=== PATIENT | female | born 1995 | race Caucasian/White ===

== ENCOUNTER 2021-01-01 10:06 | Day surgery (SDC) | payer OTHER, SELFPAY ==
[2021-01-01] VITALS (7 sets, daily range): BP systolic 105–111; BP diastolic 66–69; PULSE 70–98; RESP 16–18; TEMP 36.2–36.8; O2SAT 99–100; BMI 28.8
--- NOTE | 2021-01-01 | POC_PTH ---
PATIENT: LANA MARTIN LOC: [facility] [place] U#:[id number] AGE/SX: 25/F ROOM: RE01/01/[address]: Dr. Gillian Beltran MD : 1995 BED: DIS: 01/01/2021 SPEC #: [id number] RECD: 01/01/21 13:29 STATUS: ARTURO REQ #: [id number] EVA: 01/01/21 00:[address]: Tamera Michel DEPT: SURGICAL PATHOLOGY RECD BY: Joseph Whiteside ENTERED: 01/01/21 13:30 SP TYPE: PROD CONC OTHR DR: MD Dr. Becca Yanez MD Tissues: Product of conception, NOS Procedures: Surgery Specimen Level IV Comments: @ Ordering doctor for SUIV edited from to @ by RGOOD at 01/01/21 1604 @ Submitting doctor edited from to @ by RGOOD at 01/01/21 1604 HEADER OPERATION: Suction D & C PRE-OP DIAGNOSIS: Missed TISSUE SUBMITTED: Products of conception sent fresh (Anora) MICROSCOPIC DIAGNOSIS Endometrium, curettage: Chorionic villi, decidualized stroma and trophoblastic cells consistent with products of conception. AM:meenakshi 01/04/2021 MICROSCOPIC DESCRIPTION Slides are reviewed. GROSS DESCRIPTION Received in fixative is one container labeled with the patient's name and designated products of conception. The specimen consists of multiple irregular fragments of red-gilliam soft tissue that in aggregate measure 10 x 10 x 1 cm. parts are not grossly recognized. Human Resources District Manager portions are submitted for Anora. Human Resources District Manager portions are submitted in one cassette. / AM:meenakshi 01/01/21 TC:5 CPT: 94919
[2021-01-01] MEDS: Doxycycline 100 MG CAPSULE 200 MG PO (11:05)
[2021-01-01] MEDS: Lactated Ringers 1,000 ML 100 ML IV (11:14)
[2021-01-01 11:17] LABS: Hematocrit 38.7 % (37-47); Hemoglobin 13.1 g/dL (12.0-15.0); Mean Corp Hgb Conc 33.9 g/dL (32-36); Mean Corpuscular Hgb 29.8 pg (27.0-32.0); Platelet Count 289 K/mm3 (150-450); RBC Distribution Width CV 12.7 % (11.6-14.6); RBC Distribution Width SD 40.5 fl (35.1-43.9); White Blood Count 8.8 K/mm3 (4.4-11.0)
[2021-01-01 11:35] LABS: Hemoglobin A1c 5.1 % (3.8-5.6)
[2021-01-01 11:41] LABS: Thyroid Stim Hormone (TSH) 1.35 uIU/mL (0.358-3.74)
[2021-01-01] MEDS: Lidocaine 1% (20 ml mdv) 20 ML Vial (12:25)
[2021-01-01 12:56] LABS: Pathology Specimen OB SEE PATHOLOGY REPORT
--- NOTE | 2021-01-01 13:01 | HP.PCM_ITS ---
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 Date Name GA/Weeks Outcome Route Bth Weight Gen Labor Lgth Anesthesia Del Locatn Provider FOB 02/05/18 HANY 39 live - full term 9lbs 13oz Male 0 spinal CC [facility] Dr. Delmer LEACH 06/17/19 Rochelle 39 live - full term 8lbs 3oz Female 0 spinal CC [facility] Dr.Orafu LEACH Delivery Date: 02/05/18 scheduled c/s d/t macrosomia Radha Ambriz Delivery Date: 06/17/19 schedule c/s Radha Ambriz HPI NOB LMP 10/27/20 Details: LANA MARTIN is a 25 year old who presents for New OB visit. she denies any bleeding or cramping, having extra nausea, didn't have any with previous pregnancies. previous msicarriage was 6 weeks no d and c or medication needed. US today shows 8w2d no FHT no color flow seen. confirmed miscarriage, enlarged yolk sac. OB Visit KONSTANTIN Calculator Estimated Delivery Date Method Current WG Current Estimate 08/03/21 LMP (Certain) 9w 2d Estimated Due Date: 08/03/21 Expected Delivery Route/Plan TOLAC patient counseled regarding risks/benefits of trial of labor versus repeat . ACOG/uptodate education given to patient. % likelihood of success per calculator TOLAC consent form signed: [] Specific Issue/Plans Covid status: [] Flu vaccine: [] Tdap vaccine: [] Rhogam: [] LARC form signed: [] Problem list reviewed and updated with the most current plan of care details and appropriate orders placed. Relevant counseling for the gestational age provided. Continue routine care and follow up unless otherwise noted in visit notes/problem list details Initial Weight: 168 lb Date EGA Weight BP Urine Prot Glucose FHR FuHt Pres Dilation Effaced St Visit Note 12/31/20 9w 2d 168 lb (+0 oz) 112/68 Menstrual History Last Menstral Period: 10/27/20 Reported LMP: definite Normal amount/duration: Yes On hormonal BC at conception: No Antepartum Record Genetic Screening: Congenital Heart Defect: Other, Neural Tube Defect: Other, Hemoglobinopathy Or Carrier: Other, Cystic Fibrosis: Other, Chromosome Abnormality: Other, Gonzalez-Sachs: Other, Hemophilia: Other, Intellectual Disabil ity/Autism: Other, Recurrent Loss/Stillbirth: Other, Other Structural Defect: Other, Other Genetic Disease: Other and Maternal Metabolic Disorder: Other Infection History: Live with someone with TB or Exposed to TB: No, Patient or Partner has history of Genital Herpes: No, Rash or Viral illness since last mentrual period: No, Prior GBS-Infected child: No, History of STD: No, HIV In fection: No, History of Hepatitis: No, Recent travel outside of [place]: No, Concern for hepatitis exposure: No and Varicella immune: Yes Medical History Medical History: Negative: Diabetes, Hypertension, Heart disease, Auto-immune disorder, Kidney disease/UTI, Neurologic/epilepsy, Psychiatric, Depression/ depression, Hepatitis/liver disease, Varicosities/phlebitis, Thyroid dysfunction, Trauma/domestic violence, History of blood transfusions, D (Rh) Sensitized, Pulmonary (e.g.,TB,Asthma), Seasonal allergies, Drug/latex allergies/reactions, Breast, Finance Vice President surgery, Operations/hospitalizations, Anesthetic complications, History of abnormal pap, Uterine anomaly/kaitlin, Infertility, Anti-retroviral treatment, Relevant family history and Other ACOG First Trimester First Trimester: Desire for , Alcohol, Tobacco Cessation, Illicit/Recreational Drug/Substance Use, Intimate Partner Violence, Barriers to care, Unstable Housing, Communication Barriers, Environmental/Work Hazards, Anticipated Course of Care, Nurtrition and weight gain, Toxoplasmosis Precations, Use of Any medications, Sexual activity, Exercise, Dental Care, Sauna/Hot tub use, Seat Belt use, Childbirth classes/Hospital facilities, , Travel, Indications for Ultrasound and Screening for Aneuploidy ROS Const Reports system reviewed and no additional complaints, except as documented, Reports fatigue and Denies fever(s) Eyes Reports system reviewed and no additional complaints, except as documented ENT Reports system reviewed and no additional complaints, except as documented Card Denies chest pain and Denies dyspnea Resp Reports system reviewed and no additional complaints, except as documented, Denies cough and Denies dyspnea GI Denies abdominal pain and Reports nausea Reports system reviewed and no additional complaints, except as documented Musc Reports system reviewed and no additional complaints, except as documented Skin/Breast Reports system reviewed and no additional complaints, except as documented Neuro Yes system reviewed and no additional complaints, except as documented Psych Reports system reviewed and no additional complaints, except as documented Endo Reports system reviewed and no additional complaints, except as documented and Reports fatigue Exam Const General: healthy appearing, comfortable and no acute distress Orientation: alert [facility] Head: normal to inspection, normocephalic and atraumatic Ears: hearing grossly normal bilaterally and external ears normal Nose: external nose normal and nares normal Mouth: oral mucosae normal Teeth and gingiva: dentition normal Eyes General: appearance normal, both eyes and all related structures Neck Neck: normal visual inspection, no lymphadenopathy and supple Thyroid: thyroid normal Chest Chest palpation & inspection: normal inspection of the chest Breast inspection: normal inspection of the breasts and normal inspection of the axillae Breast palpation: normal palpation of the breasts and normal palpation of the axillae Resp Effort & Inspection: normal respiratory effort GI Inspection: normal to inspection Palpation: soft and no hepatosplenomegaly General: bladder normal to palpation External Female Exam: normal external appearance and normal appearance of the urethra Urethra: normal appearance of the urethra Speculum Exam - Vagina: normal appearance of the vagina and normal vaginal discharge Speculum Exam - Cervix: normal appearance of the cervix Bimanual Exam- Vagina & Uterus: normal bimanual exam, bladder normal to palpation, non-tender and other Bimanual Exam- Adnexa, other: non-tender Skin General: no rashes or lesions noted Neuro Motor: muscle tone normal throughout and no movement abnormalities noted Extrem General: normal to inspection and full ROM Supplemental Info ACOG book given and patient encouraged to read about nutrition, exercise, weight gain, and food avoidance in . Coding Level of Care Code Off vis,new,level 4 Diagnoses Missed O02.1 Assessment and Plan Assessment and Plan (1) Missed : Status: Acute Comment: discussed options medical vs exp vs surgical management, patient to decide. Plan - Dr. Tamera Michel MD: Problem list updated and treatment plans were reviewed with the patient and relevant educational handouts given. See problem list details for specific plan information. 12/31/20 5602 UPDATE- I have seen the patient and performed any clinically relevant updates to the history and physical exam. Tamera Michel MD
--- NOTE | 2021-01-01 13:02 | PCM.OPRPT ---
Problems Associated Problem List Diagnoses (1) Missed : Report of Operation Date of Procedure: 01/01/21 Pre-Operative Diagnosis: see PL Post-Operative Diagnosis: same Surgery/Procedure Performed:: Suction dilation and curettage Description of Surgical Findings:: no FHT present, Nonviable 9 weeks specialty food products supervisor: None Type of Anesthesia: Local MAC Special Medications: none Specimen's removed: POC Drains: none Estimated Blood Loss (mL): 50 Fluids Replaced: crystalloid Description of Procedure: us done and no fht seen. Patient was taken to the operating room and placed under MAC local anesthesia. She was prepped and draped in the normal sterile fashion the dorsal lithotomy position. Bladder was drained of clear urine and anterior lip of the cervix was grasped and the uterus sounded to 10. Cervix was progressively dilated to allow passage of a 10mm suction curette. Progressive passes were made removing the retained products of conception without complication. Sharp curettage confirmed complete removal of the retained products. All instruments were removed from the vagina and excellent hemostasis was noted and the patient was taken to recovery in stable condition. Grafts/Implants Used: none Complications none Admit VTE Documentation VTE Present on Admission: No VTE Mechan Device Prophylaxis: SCD's Procedures Urinary/Genital 52xxx-59xxx: [id number] Trmt of incomplete Ab, any TM
--- NOTE | 2021-01-01 13:16 | EX.PCM.DISCH ---
Discharge Instructions Procedure D&C Diet Discharge Diet: No restrictions Activity Discharge Activity: Return to Normal Activity, May Shower and May Take a Tub Bath (after 1 week) May resume sexual activity in: 1-2 weeks Weight Bearing Status: Weight bearing as tolerated Lifting Restrictions: none Dressing / Incision Call your doctor if you observe: Fever of 101 or Higher, Using more than 1 pad per hour, Shortness of breath and Uncontrolled pain Follow Up Care Please Follow Up With: Tamera Michel MD When: Call [phone] to schedule appointment. Test Results: Test results from this visit will be discussed in further detail at your follow-up appointment, if applicable. Discharge Plan Admission Attending Provider: Gillian Beltran Primary Care Provider: Becca Agrawal Discharge Orders/Prescriptions Prescriptions: No Action PNV-DHA 27 mg iron-1 mg -300 mg capsule PO RF: 0 Disposition Discharge Orders: Discharge Patient (Routine); Ordered 01/01/21 Ordered By: Dr. Tamera Michel
== END 2021-01-01 14:17 | disposition home or self-care (01) ==
LOC: SDC 10:09 → AC 10:11
PROVIDERS: Obstetrics & Gynecology; PCP Family Medicine; Referring Provider Obstetrics & Gynecology; Visit Provider Obstetrics & Gynecology
PROC: (CPT 59820; principal; 2021-01-01 11:45)
DX: O02.1 Missed abortion (principal); Z3A.09 9 weeks gestation of pregnancy; Z20.822 Contact with and (suspected) exposure to COVID-19
CPT/HCPCS: 01965; 59820; 83036; 84443; 85027; 86850; 86900; 86901; 87426; 88305; J7120; J2405

== ENCOUNTER 2021-06-09 10:41 | Outpatient (CLI) | payer OTHER, SELFPAY ==
[2021-06-09 11:35] LABS: Amphetamine Urine VISTA NEGATIVE (<1000 ng/mL); Barbiturate Urine VISTA NEGATIVE (< 200 ng/mL); Benzodiazepine Urine VISTA NEGATIVE (< 200 ng/mL); Cocaine Urine VISTA NEGATIVE (< 300 ng/mL); Ecstacy Urine VISTA NEGATIVE (< 500 ng/mL); Methadone Urine VISTA NEGATIVE (< 300 ng/mL); PCP Urine VISTA NEGATIVE (< 25 ng/mL); THC Urine VISTA NEGATIVE (< 50 ng/mL); Vista UDS pH Range 7
[2021-06-10 22:07] LABS: Chlamydia By Nucleic Acid AMP Negative (Negative)
[2021-06-11 11:00] LABS: Gonococcus By Nucleic Acid AMP Negative (Negative)
[2021-06-16 14:26] LABS: HPV Reflexed? NOT INDICATED
== END 2021-06-09 23:59 | disposition home or self-care (01) ==
LOC: LABSPEC 10:42
PROVIDERS: PCP Family Medicine; Referring Provider Obstetrics & Gynecology; Visit Provider Obstetrics & Gynecology
DX: Z12.4 Encounter for screening for malignant neoplasm of cervix (principal); O09.90 Supervision of high risk pregnancy, unspecified, unspecified trimester
CPT/HCPCS: 80307; 87086; 87088; 87491; 87591; 88175; G0145

== ENCOUNTER 2021-06-25 12:43 | Outpatient (CLI) | payer OTHER, SELFPAY ==
[2021-06-25 13:08] LABS: Absolute Lymphocyte Count 2.05 X10^3/uL (0.83-4.51); Absolute Neutrophil Count 6.3 X10^3/uL (2.0-7.7); Basophil# 0.02 X10^3/uL; Basophil% 0.2 % (0-1); Eosinophil# 0.17 X10^3/uL; Eosinophils% 1.9 % (0-5); Hematocrit 36.6 % (37-47); Hemoglobin 12.7 g/dL (12.0-15.0); Lymphocyte # 2.05 X10^3/ul (0.83-4.51); Lymphocyte % 22.9 % (19-41); Mean Corp Hgb Conc 34.7 g/dL (32-36); Mean Corpuscular Hgb 31.1 pg (27.0-32.0); Mean Corpuscular Volume 89.5 fL (81-99); Monocyte# 0.43 X10^3/uL; Monocyte% 4.8 % (0-10); NRBC Flagged by Analyzer 0 % (0-5); Neutrophil # 6.28 X10^3/uL (2.7-7.7); Platelet Count 271 K/mm3 (150-450); RBC Distribution Width CV 12.6 % (11.6-14.6); RBC Distribution Width SD 41.1 fl (35.1-43.9); Red Blood Count 4.09 M/mm3 (4.2-5.4)
[2021-06-25 13:27] LABS: Glucose Challenge Gest 1H 50g 128 mg/dL (70-140)
[2021-06-25 14:09] LABS: HIV - WCH Non-Reactive (Nonreactive); Hepatitis B Surface Antigen Non-Reactive (Nonreactive); Hepatitis C Antibody Non-Reactive (Nonreactive); Rubella IgG Reactive (Nonreactive); Syphilis Antibodies Non-reactive
== END 2021-06-25 23:59 | disposition home or self-care (01) ==
LOC: PAVLAB 12:44
PROVIDERS: PCP Family Medicine; Referring Provider Obstetrics & Gynecology; Visit Provider Obstetrics & Gynecology
DX: O99.210 Obesity complicating pregnancy, unspecified trimester (principal)
CPT/HCPCS: 36415; 82950; 85025; 86703; 86762; 86780; 86803; 86850; 86900; 86901; 87340

== ENCOUNTER → 2021-10-25 | Outpatient (CLI) | payer OTHER, SELFPAY ==
[2021-10-25 13:01] LABS: Absolute Lymphocyte Count 1.28 X10^3/uL (0.83-4.51); Absolute Neutrophil Count 2.8 X10^3/uL (2.0-7.7); Basophil# 0.01 X10^3/uL; Basophil% 0.2 % (0-1); Eosinophil# 0.08 X10^3/uL; Eosinophils% 1.8 % (0-5); Hematocrit 34.3 % (37-47); Hemoglobin 11.3 g/dL (12.0-15.0); Lymphocyte # 1.28 X10^3/ul (0.83-4.51); Lymphocyte % 28.6 % (19-41); Mean Corp Hgb Conc 32.9 g/dL (32-36); Mean Corpuscular Hgb 31.2 pg (27.0-32.0); Mean Corpuscular Volume 94.8 fL (81-99); Mean Platelet Vol. 10.7 fl (6.2-12.0); Monocyte# 0.29 X10^3/uL; Monocyte% 6.5 % (0-10); NRBC Flagged by Analyzer 0 % (0-5); Neutrophil # 2.77 X10^3/uL (2.7-7.7); Platelet Count 208 K/mm3 (150-450); RBC Distribution Width CV 13.6 % (11.6-14.6); RBC Distribution Width SD 47.3 fl (35.1-43.9); Red Blood Count 3.62 M/mm3 (4.2-5.4); White Blood Count 4.5 K/mm3 (4.4-11.0)
[2021-10-25 13:24] LABS: Glucose Challenge Gest 1H 50g 143 mg/dL (70-140)
== END | disposition home or self-care (01) ==
LOC: LAB 11:32
PROVIDERS: PCP Family Medicine; Visit Provider Nurse Practitioner Women's Health
DX: Z34.90 Encounter for supervision of normal pregnancy, unspecified, unspecified trimester (principal)
CPT/HCPCS: 36415; 82950; 85025

== ENCOUNTER → 2021-11-09 | Outpatient (CLI) | payer OTHER, SELFPAY ==
[2021-11-09 07:50] LABS: Glucose GTT-Gestation. Fasting 89 mg/dL (<105)
[2021-11-09 08:36] LABS: Glucose GTT-Gestational 1 Hr 135 mg/dL (<190)
[2021-11-09 09:49] LABS: Glucose GTT-Gestational 2 Hr 158 mg/dL (<165)
[2021-11-09 11:23] LABS: Glucose GTT-Gestational 3 Hr 106 L (<145)
== END | disposition home or self-care (01) ==
LOC: LAB 06:54
PROVIDERS: PCP Family Medicine; Referring Provider Nurse Practitioner Women's Health; Visit Provider Nurse Practitioner Women's Health
DX: Z13.1 Encounter for screening for diabetes mellitus (principal)
CPT/HCPCS: 36415; 82951; 82952

== ENCOUNTER → 2021-12-24 | Outpatient (CLI) | payer OTHER, SELFPAY | END | disposition home or self-care (01) | LOC: LABSPEC 13:39 | PROVIDERS: PCP Family Medicine; Visit Provider Obstetrics & Gynecology | DX: O09.90 Supervision of high risk pregnancy, unspecified, unspecified trimester (principal); Z3A.00 Weeks of gestation of pregnancy not specified | CPT/HCPCS: 87081 ==

== ENCOUNTER 2022-01-06 23:30 | Inpatient (IN) | payer OTHER, SELFPAY ==
[2022-01-06 22:57] VITALS: BMI 29.2
[2022-01-06 23:03] VITALS: BP 118/77; PULSE 67; TEMP 36.3; O2SAT 97
[2022-01-06 23:27] LABS: ROM Internal Control Test YES-OK TO RESULT pt. (Internal QC); ROM Patient Test POSITIVE (Negative)
[2022-01-07] VITALS (66 sets, daily range): BP systolic 80–162; BP diastolic 45–81; PULSE 64–117; TEMP 35.9–37.4; O2SAT 96–99
[2022-01-07 00:48] LABS: Absolute Lymphocyte Count 2.25 X10^3/uL (0.83-4.51); Absolute Neutrophil Count 7.8 X10^3/uL (2.0-7.7); Basophil# 0.03 X10^3/uL; Basophil% 0.3 % (0-1); Eosinophil# 0.14 X10^3/uL; Eosinophils% 1.3 % (0-5); Hematocrit 38.2 % (37-47); Hemoglobin 13.2 g/dL (12.0-15.0); Lymphocyte # 2.25 X10^3/ul (0.83-4.51); Lymphocyte % 20.7 % (19-41); Mean Corp Hgb Conc 34.6 g/dL (32-36); Mean Corpuscular Hgb 31.5 pg (27.0-32.0); Mean Corpuscular Volume 91.2 fL (81-99); Mean Platelet Vol. 11.4 fl (6.2-12.0); Monocyte# 0.64 X10^3/uL; Monocyte% 5.9 % (0-10); NRBC Flagged by Analyzer 0 % (0-5); Neutrophil # 7.77 X10^3/uL (2.7-7.7); Neutrophil % 71.4 % (47-70); Platelet Count 246 K/mm3 (150-450); RBC Distribution Width SD 43.3 fl (35.1-43.9); Red Blood Count 4.19 M/mm3 (4.2-5.4); White Blood Count 10.9 K/mm3 (4.4-11.0)
[2022-01-07] MEDS: Lactated Ringers 1,000 ML 200 ML IV ×3 (03:40→16:21)
[2022-01-07] MEDS: LACTATED RINGERS 500 ML 999 ML IV ×2 (03:40→04:45)
[2022-01-07] MEDS: fentaNYL-bupivacaine (epidural) 100 ML BAG EPIDURAL ×3 (04:14→14:37)
--- NOTE | 2022-01-07 05:03 | HP.PCM.OB_ITS ---
HPI - General General Date of Admission: 01/06/22 HPI Narrative LANA MARTIN, is a 26 F who presents IAL with SROM clear fluid desires TOLAC. Maternal Data Information KONSTANTIN Calculator Estimated Delivery Date Method Current WG Current Estimate 01/18/22 Ultrasound #1 38w 3d Other Estimates 01/12/22 LMP (Uncertain) 39w 2d PFSH PFSH Medical History (Updated 01/07/22 @ 05:[address] Tamera Michel MD) macrosomia Home Medications multivitamin no.47-iron fum 27 mg-folate no.1 1 mg-dha 300 mg capsule (PNV-DHA) 1 cap PO DAILY 12/15/20 [History Last Taken 01/05/22 08:00] Allergy/AdvReac Type Severity Reaction Status Date / Time chlorhexidine AdvReac Severe Rash Verified 01/06/22 22:58 Surgical History (Updated 12/29/21 @ 10:[address] 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 Date Name GA/Weeks Outcome Route Bth Weight Gen Labor Lgth Anesthesia Del Locatn Provider FOB 02/05/18 HANY 39 live - full term 9lbs 13oz Male 0 spinal CC [facility] Dr. Delmer LEACH 06/17/19 Rochelle 39 live - full term 8lbs 3oz Female 0 spinal CC [facility] Dr.Orafu LEACH 07/16/20 6 spontaneous 01/01/21 9 spontaneous Delivery Date: 02/05/18 Last Updated by: Radha Ambriz scheduled c/s d/t macrosomia Delivery Date: 06/17/19 Last Updated by: Radha Ambriz schedule c/s Delivery Date: 01/01/21 Last Updated by: Alisia Santiago EMERGENCY ROOM SPECIALIST, EMERGENCY ROOM SPECIALIST-C D&C per Visit Details Expected Delivery Route/Plan TOLAC patient counseled regarding risks/benefits of trial of labor versus repeat . ACOG/uptodate education given to patient. 51 % likelihood of success per calculator TOLAC consent form signed: 12/29/2021 riana planned- Mitul Sanchez, friend. Labor Preferences- CB/BF classes: mitul sanchez labor support person: rn internship Mitul, HANY labor intervention preferences: prefers minimal intervention. pain management options preferred: natural cut cord/dad catch: yes : yes PP control planned: NFP discussed possible routes of delivery and associated risks:yes special requests: will decline erythromycin ointment, vitamin K, hep B vaccine. does not want pitocin for second stage unless increased vaginal bleeding Plans Covid status: discussed Flu vaccine: discussed Tdap vaccine: declines Rhogam: NA LARC form signed: yes Problem list reviewed and updated with the most current plan of care details and appropriate orders placed. Relevant counseling for the gestational age provided. Continue routine care and follow up unless otherwise noted in visit notes/problem list details OB Flowsheet Initial Weight: Not Recorded Date -?-?-?-?-?-?-?-?-?-?-?-?- EGA Weight BP Urine Prot -?-?-?-?-?-?-?-?-?-?-?-?- Glucose FHR FuHt Pres Dilation -?-?-?-?-?-?-?-?-?-?-?-?- Effaced St Visit Note 06/09/21 -?-?-?-?-?-?-?-?-?-?-?-?- 8w 1d 173 lb 130/82 -?-?-?-?-?-?-?-?-?-?-?-?- 155 -?-?-?-?-?-?-?-?-?-?-?-?- JV- CRL off by o ne week new KONSTANTIN is 01/18/2021 JV- CRL off by one week new KONSTANTIN is 01/18/2022. plan for rpt section 06/25/21 -?-?-?-?-?-?-?-?-?-?-?-?- 10w 3d 175 lb 120/80 Negative -?-?-?-?-?-?-?-?-?-?-?-?- Negative 171 -?-?-?-?-?-?-?-?-?-?-?-?- JV- CRL measures 10w5d, FHT obtained. pt reassured. RTO in 4 weeks. 07/29/21 -?-?-?-?-?-?-?-?-?-?-?-?- 15w 2d 166 lb 8 oz 116/60 Nega tive -?-?-?-?-?-?-?-?-?-?-?-?- Negative 160 -?-?-?-?-?-?-?-?-?-?-?-?- No VB, LOF. Elle f to confirm FHT. Anatomy US MFM ordered. 09/27/21 -?-?-?-?-?-?-?-?-?-?-?-?- 23w 6d 170 lb 120/60 Negative -?-?-?-?-?-?-?-?-?-?-?-?- Negative 160 -?-?-?-?-?-?-?-?-?-?-?-?- SM- no vb lof go od fm no regular ctx. 10/25/21 -?-?-?-?-?-?-?-?-?-?-?-?- 27w 6d 171 lb 8 oz 106/60 Nega tive -?-?-?-?-?-?-?-?-?-?-?-?- Negative 141 -?-?-?-?-?-?-?-?-?-?-?-?- MH-No VB, LOF. G ood FM. 28 wk labs, larc. Declines tdap 11/09/21 -?-?-?-?-?-?-?-?-?-?-?-?- 30w 0d 172 lb 114/80 Negative -?-?-?-?-?-?-?-?-?-?-?-?- Negative 140 30 -?-?-?-?-?-?-?-?-?-?-?-?- SM- no vb lof go od fm no regular ctx 12/08/21 -?-?-?-?-?-?-?-?-?-?-?-?- 34w 1d 172 lb 8 oz 114/78 Nega tive -?-?-?-?-?-?-?-?-?-?-?-?- Negative 145 35 -?-?-?-?-?-?-?-?-?-?-?-?- JV- no lof ,vagi nal bleeding, or dec fm. still planning tolac. 12/24/21 -?-?-?-?-?-?-?-?-?-?-?-?- 36w 3d 173 lb 6 oz 116/75 Nega tive -?-?-?-?-?-?-?-?-?-?-?-?- Negative 143 36 -?-?-?-?-?-?-?-?-?-?-?-?- JV- no lof vagin al bleeding, or dec fm. declines vag exam. does not want to schedule anything yet for rpt section. wants to try . GBS collected. 12/29/21 -?-?-?-?-?-?-?-?-?-?-?-?- 37w 1d 171 lb 4 oz 126/84 Nega tive -?-?-?-?-?-?-?-?-?-?-?-?- Negative 160 38 Cephalic 1 -?-?-?-?-?-?-?-?-?-?--?-?- 40% LC- no l of, vb or consistent ctx. occ renetta jasso. request VE. consent obtained. LC- no lof, vb or consistent ctx. occ renetta jasso. request VE. consent ob tained. minimal weight gain, growth scan offered but declined. EFW 6.5# 01/06/22 -?-?-?-?-?-?-?-?-?-?-?-?- 38w 2d 170 lb 3.15 oz 118/7 7 105/54 118/74 162/63 106/61 117/69 131/81 124/60 101/55 91/52 91/53 92/55 92/48 84/45 87/49 80/46 90/53 88/52 84/47 82/47 -?-?-?-?-?-?-?-?-?-?-?-?- -?-?-?-?-?-?-?-?-?-?-?-?- Vital Signs Vital Signs Vital Signs: 01/06/22 23:03 01/06/22 23:03 01/06/22 23:03 Temperature Temperature Source Pulse Rate 67 Blood Pressure 118/77 BP Systolic 118 BP Diastolic 77 Pulse Ox 97 01/06/22 23:03 01/06/22 23:03 01/07/22 00:45 Temperature 97.4 F L Temperature Source Temporal Pulse Rate Blood Pressure 105/54 L BP Systolic 105 BP Diastolic 54 Pulse Ox 01/07/22 00:45 01/07/22 00:45 01/07/22 00:45 Temperature 97.5 F L Temperature Source Temporal Pulse Rate 64 Blood Pressure BP Systolic BP Diastolic Pulse Ox 01/07/22 02:03 01/07/22 02:04 01/07/22 02:04 Temperature Temperature Source Temporal Pulse Rate 84 Blood Pressure 118/74 BP Systolic 118 BP Diastolic 74 Pulse Ox 01/07/22 02:03 01/07/22 03:16 01/07/22 03:16 Temperature 97.5 F L 97.5 F L Temperature Source Temporal Pulse Rate Blood Pressure BP Systolic BP Diastolic Pulse Ox 01/07/22 03:17 01/07/22 03:17 01/07/22 03:18 Temperature Temperature Source Pulse Rate 79 Blood Pressure 162/63 H 106/61 BP Systolic 162 106 BP Diastolic 63 61 Pulse Ox 01/07/22 03:18 01/07/22 04:07 01/07/22 04:07 Temperature Temperature Source Pulse Rate 88 81 Blood Pressure 117/69 BP Systolic 117 BP Diastolic 69 Pulse Ox 01/07/22 04:13 01/07/22 04:13 01/07/22 04:14 Temperature Temperature Source Pulse Rate 72 Blood Pressure 131/81 H 124/60 H BP Systolic 131 124 BP Diastolic 81 60 Pulse Ox 01/07/22 04:14 01/07/22 04:17 01/07/22 04:17 Temperature Temperature Source Pulse Rate 89 85 Blood Pressure 101/55 L BP Systolic 101 BP Diastolic 55 Pulse Ox 01/07/22 04:19 01/07/22 04:18 01/07/22 04:19 Temperature 98.1 F Temperature Source Temporal Pulse Rate Blood Pressure BP Systolic BP Diastolic Pulse Ox 97 01/07/22 04:22 01/07/22 04:22 01/07/22 04:27 Temperature Temperature Source Pulse Rate 101 H Blood Pressure 91/52 L 91/53 L BP Systolic 91 91 BP Diastolic 52 53 Pulse Ox 01/07/22 04:27 01/07/22 04:32 01/07/22 04:32 Temperature Temperature Source Pulse Rate 104 H 87 Blood Pressure 92/55 L BP Systolic 92 BP Diastolic 55 Pulse Ox 01/07/22 04:32 01/07/22 04:37 01/07/22 04:37 Temperature Temperature Source Pulse Rate 75 Blood Pressure 92/48 L BP Systolic 92 BP Diastolic 48 Pulse Ox 97 01/07/22 04:43 01/07/22 04:43 01/07/22 04:47 Temperature Temperature Source Pulse Rate 84 Blood Pressure 84/45 L 87/49 L BP Systolic 84 87 BP Diastolic 45 49 Pulse Ox 01/07/22 04:47 01/07/22 04:42 01/07/22 04:37 Temperature Temperature Source Pulse Rate 73 Blood Pressure BP Systolic BP Diastolic Pulse Ox 97 97 01/07/22 04:53 01/07/22 04:53 01/07/22 04:56 Temperature Temperature Source Pulse Rate 74 Blood Pressure 80/46 L 90/53 L BP Systolic 80 90 BP Diastolic 46 53 Pulse Ox 01/07/22 04:56 01/07/22 04:59 01/07/22 04:59 Temperature Temperature Source Pulse Rate 81 72 Blood Pressure 88/52 L BP Systolic 88 BP Diastolic 52 Pulse Ox 01/07/22 04:56 01/07/22 05:02 01/07/22 05:02 Temperature Temperature Source Pulse Rate 84 Blood Pressure 84/47 L BP Systolic 84 BP Diastolic 47 Pulse Ox 97 01/07/22 04:59 Temperature Temperature Source Pulse Rate Blood Pressure BP Systolic BP Diastolic Pulse Ox 97 Weight Weight: 170 lb 3.15 oz Body Mass Index (BMI) 29.2 Labs Labs Labs: Blood Type A POSITIVE Antibody Screen NEGATIVE Hct 38.2 % (37-47) Hgb 13.2 g/dL (12.0-15.0) Syphilis Total Ab Non-reactive Rubella IgG Antibody Reactive (Nonreactive) Hep Bs Antigen Non-Reactive (Nonreactive) Chlamydia DNA (KARYN) Negative (Negative) Neisseria gonorrhoeae DNA (KARYN) Negative (Negative) HIV 1&2 Antibody Non-Reactive (Nonreactive) Glucose 1 Hr 50 gm 143 mg/dL (70-140) H Miscellaneous Test Assessment & Plan (1) History of recurrent miscarriages: COMMENT: Seeing naturopathic doctor:on oral progesterone gtt. discussed stopping, patient wants to continue utnil third trimester as reocmmended by physical education instructor. (2) Supervision of high risk , antepartum: COMMENT: PRR KONSTANTIN:01/12/22. surprise PC: Mark LEACH. Spouse:HANY (3) : QUALIFIERS: Weeks of gestation: 37 weeks Qualified Code(s): Z3A.37 - 37 weeks gestation of COMMENT: GBS neg. declines genetic and carrier screen nl anatomy US 08/23/21 (4) Abnormal glucose: COMMENT: failed 1 HR (5) H/O section: COMMENT: 2019- would like TOLAC. 1st- cs for macrosomia, scheduled. plan delivery by 41 weeks. calc 51% (6) SROM (spontaneous rupture of membranes): PLAN: Plan Patient presents pit PRN admit IAL. Pain management: open to epi . GBS neg. Management of any complications: none I have reviewed the [facility] and made any clinically relevant updates.
[2022-01-07] MEDS: Oxytocin 30 units/NS 500 ml 30 UNITS/500 ML IV.SOLN IV (08:30)
--- NOTE | 2022-01-07 16:43 | EX.PCM.OBRPT ---
Assessment & Plan (1) SROM (spontaneous rupture of membranes): (2) History of recurrent miscarriages: COMMENT: Seeing naturopathic doctor:on oral progesterone gtt. discussed stopping, patient wants to continue utnil third trimester as reocmmended by remote broadcast technician. (3) Supervision of high risk , antepartum: COMMENT: PRR KONSTANTIN:01/12/22. surprise PC: Mark LEACH. Spouse:HANY (4) : QUALIFIERS: Weeks of gestation: 37 weeks Qualified Code(s): Z3A.37 - 37 weeks gestation of COMMENT: GBS neg. declines genetic and carrier screen nl anatomy US 08/23/21 (5) Abnormal glucose: COMMENT: failed 1 HR (6) H/O section: COMMENT: 2019- would like TOLAC. 1st- cs for macrosomia, scheduled. plan delivery by 41 weeks. calc 51% (7) Vaginal after : COMMENT: sm 38 SROM Maternal Data Information KONSTANTIN Calculator Estimated Delivery Date Method Current WG Current Estimate 01/18/22 Ultrasound #1 38w 4d Other Estimates 01/12/22 LMP (Uncertain) 39w 3d Vaginal Delivery Operative Information Date of Procedure: 01/08/22 Pre-Operative Diagnosis: IAL Post-Operative Diagnosis: same Surgery / Procedure Performed: Spontaneous Vaginal Delivery Type of Anesthesia: Epidural Special Medications: none Estimated Blood Loss: 300 Fluids Replaced: crystalloid Findings Description of Procedure: Patient began pushing and delivered the head in the osmel presentation. The head was delivered atraumatically and a loose nuchal cord ?1 was identified and the delivered through without complication. The anterior and posterior shoulders delivered without complication followed by the rest of the infant and the infant was placed on the maternal abdomen. Delayed cord clamping was employed for approximately 60 seconds. Cord was clamped and cut and gentle traction was applied to the cord and the placenta delivered spontaneously immediately following it was noted to be intact with three-vessel cord. The perineum and vagina were inspected and noted ot hav ea second degree laceration repaired in the usual fashion with 3-0 rapide. EBL was 300. Patient and infant tolerated delivery well. Presentation: OSMEL Amniotic Membrane Rupture Type: Spontaneous Amniotic Fluid Description: Clear Placental Delivery Description: Spontaneous Placenta Disposition: [facility] Cord Vessel Description: 3 Vessels Cord Entanglement: Around neck x 1, loose Delayed Cord Clamping: Yes Post Vaginal Delivery Medications Given After Delivery: IV Pitocin Episiotomy Description: None Laceration: Perineal Extension/lac and 2nd degree Complication Complications: None Procedures Urinary/Genital [id number]: [id number] Vaginal Delivery [facility]
[2022-01-07] MEDS: Oxytocin 30 units/NS 500 ml 30 UNITS/500 ML IV.SOLN 334 UNITS IV (17:39)
[2022-01-07] MEDS: Naproxen 500 MG Tablet PO (20:05)
[2022-01-07] MEDS: Acetaminophen 500 MG Tablet 1000 MG PO (21:05)
[2022-01-07] MEDS: Benzocaine/Lanolin/Aloe Vera 1 SPRAY EACH TOPICAL (21:05)
[2022-01-08 00:29] VITALS: BP 112/59; PULSE 84; RESP 16; TEMP 36.6
[2022-01-08 04:05] VITALS: BP 96/55; PULSE 82; RESP 16; TEMP 36.7
[2022-01-08 08:49] VITALS: BP 100/67; PULSE 94; RESP 16; TEMP 36.6; O2SAT 97
--- NOTE | 2022-01-08 09:00 | PCM.PN.OB ---
Subjective Subjective Patient doing well without complaints. Tolerating PO. Ambulating and voiding without difficulty. feeding well. Denies chest pain, shortness of breath, calf pain/swelling, fevers, chills, lightheadedness. Objective Data Objective Data Vital Signs: Vital Signs Temp Pulse Resp BP Pulse Ox O2 Del Method 97.9 F 94 16 100/67 97 Room Air 01/08/22 08:49 01/08/22 08:49 01/08/22 08:49 01/08/22 08:49 01/08/22 08:49 01/08/22 08:49 Oxygen Delivery Method Room Air Weight: 170 lb 3.15 oz Body Mass Index (BMI) 29.2 Intake & Output: Intake and Output for Last 24 Hours 01/06/22 01/07/22 01/08/22 23:59 23:59 23:59 Intake Total 3833.10 / 3833.10 Output Total 500 / 500 Balance 3333.10 / 3333.10 Lab / Micro Data Result Diagrams: 01/07/22 00:25 Micro: Microbiology 01/07/22 00:25 Nasal Secretion SARS-CoV-2 Antigen (Rapid) - Final ROS Constitutional Constitutional: Reports systems reviewed and no addt'l complaints, except as documented Cardiovascular Cardiovascular: Reports systems reviewed and no addt'l complaints, except as documented Respiratory/Chest Respiratory/Chest: Reports systems reviewed and no addt'l complaints, except as documented Gastrointestinal Gastrointestinal: Reports systems reviewed and no addt'l complaints, except as documented Physical Exam Const alert, oriented x3 and no apparent distress HEENT Head and Scalp: atraumatic Resp normal respiratory effort GI soft to palpation and non-tender Bimanual Exam - Vag & Uterus: uterus non-tender Uterus Palpation: uterus fundus firm (below Umbilicus) Assessment & Plan (1) Vaginal after : COMMENT: 38 SROM PLAN: Plan s/p PPD # 1 1. routine post delivery care 2. breast feeding- support given 3. rh positive 4. rubella immune
--- NOTE | 2022-01-08 09:01 | DCINST_ITS ---
Discharge Instructions Diet Discharge Diet: No restrictions Activity Discharge Activity: Return to Normal Activity, May Drive, May Shower and May Take a Tub Bath (in 4 weeks) May resume sexual activity in: 6-8 weeks (after seen by OB provider) Weight Bearing Status: Full weight bearing Lifting Restrictions: none Dressing / Incision Call your doctor if you observe: Fever of 101 or Higher, Inability to urinate, Using more than 1 pad per hour (for more than 2 hours in a row or more), Shortness of breath, Dizziness, Chest pain and - (headache not controlled with tylenol, change in vision) Follow Up Care When: in 6 weeks for visit, call the office to make the appointment. If you had elevated blood pressures call the office to be seen within 1 week. Test Results: Test results from this visit will be discussed in further detail at your follow- up appointment, if applicable. Discharge Plan Admission Admit Date/Time: 01/06/22 23:30 Attending Provider: Tamera Michel Primary Care Provider: Becca Agrawal Discharge Orders/Prescriptions Prescriptions: No Action PNV-DHA 27 mg iron-1 mg -300 mg capsule 1 cap PO DAILY Referrals / Follow Up: Becca Agrawal MD [Primary Care Provider] - Disposition Disposition (needs filled in before D/C Order can be placed): Home, Self Care
[2022-01-08] MEDS: Naproxen 500 MG Tablet PO ×2 (09:20→19:09)
[2022-01-08 11:34] VITALS: BP 99/63; PULSE 92; RESP 16; TEMP 36.4; O2SAT 97
[2022-01-08 15:46] VITALS: BP 105/67; PULSE 87; RESP 16; TEMP 36.4; O2SAT 99
[2022-01-08 20:00] VITALS: BP 104/66; PULSE 75; RESP 15; TEMP 36.6; O2SAT 98
[2022-01-09 02:17] VITALS: BP 97/56; PULSE 71; RESP 14; TEMP 36.6
--- NOTE | 2022-01-09 04:40 | NURSING ---
All charting done by Clinton, RN reviewed by FuentesRN
[2022-01-09 07:34] VITALS: BP 111/68; PULSE 73; RESP 16; TEMP 36.6; O2SAT 97
--- NOTE | 2022-01-09 08:02 | PCM.PN.OB ---
Subjective Subjective Patient doing well without complaints. Tolerating PO. Ambulating and voiding without difficulty. feeding well. Denies chest pain, shortness of breath, calf pain/swelling, fevers, chills, lightheadedness. Objective Data Objective Data Vital Signs: Vital Signs Temp Pulse Resp BP Pulse Ox O2 Del Method 97.8 F 73 16 111/68 97 Room Air 01/09/22 07:34 01/09/22 07:34 01/09/22 07:34 01/09/22 07:34 01/09/22 07:34 01/09/22 07:34 Oxygen Delivery Method Room Air Weight: 170 lb 3.15 oz Body Mass Index (BMI) 29.2 Intake & Output: Intake and Output for Last 24 Hours 01/07/22 01/08/22 01/09/22 23:59 23:59 23:59 Intake Total 3833.10 / 3833.10 Output Total 500 / 500 Balance 3333.10 / 3333.10 Lab / Micro Data Result Diagrams: 01/07/22 00:25 Micro: Microbiology 01/07/22 00:25 Nasal Secretion SARS-CoV-2 Antigen (Rapid) - Final ROS Constitutional Constitutional: Reports systems reviewed and no addt'l complaints, except as documented Cardiovascular Cardiovascular: Reports systems reviewed and no addt'l complaints, except as documented Respiratory/Chest Respiratory/Chest: Reports systems reviewed and no addt'l complaints, except as documented Gastrointestinal Gastrointestinal: Reports systems reviewed and no addt'l complaints, except as documented Physical Exam Const alert, oriented x3 and no apparent distress HEENT Head and Scalp: atraumatic Resp normal respiratory effort GI soft to palpation and non-tender Bimanual Exam - Vag & Uterus: uterus non-tender Uterus Palpation: uterus fundus firm (below Umbilicus) Assessment & Plan (1) Vaginal after : COMMENT: 38 SROM PLAN: Plan s/p PPD # 2 1. routine post delivery care 2. breast feeding- support given 3. rh positive 4. rubella immune
== END 2022-01-09 08:45 | disposition home or self-care (01) | DRG 807 ==
LOC: WPOUT 23:32 → WP 23:32
PROVIDERS: Admitting Provider Obstetrics & Gynecology; PCP Family Medicine; Visit Provider Obstetrics & Gynecology
DX: O34.219 Maternal care for unspecified type scar from previous cesarean delivery (principal); Z37.0 Single live birth; O99.814 Abnormal glucose complicating childbirth; O69.81X0 Labor and delivery complicated by cord around neck, without compression, not applicable or unspecified; Z20.822 Contact with and (suspected) exposure to COVID-19; O70.1 Second degree perineal laceration during delivery; Z3A.37 37 weeks gestation of pregnancy
CPT/HCPCS: 59025; 59050; 84112; 85025; 86850; 86900; 86901; 87426; 99218; J7120; G0378